=== PATIENT | male | born 1990 | race Caucasian/White ===

== ENCOUNTER 2016-11-28 19:56 | Emergency (ER) | payer SELFPAY ==
[~2016-11-28] VITALS: Ht 188 cm; Wt 120.0 kg
[2016-11-28 19:57] VITALS: BP 179/104; PULSE 67; RESP 16; TEMP 98.4; O2SAT 98
[2016-11-28 20:32] VITALS: PULSE 55; RESP 18; TEMP 98.1; O2SAT 99
[2016-11-28 20:35] VITALS: BP 174/94; PULSE 55; RESP 18; O2SAT 98
--- NOTE | 2016-11-28 20:58 | PD ---
HPI Chief Complaint: Chest Pain Time Seen by Provider: 20:58 Travel History International Travel<30 days: No Contact w/Intl Traveler<30days: No Traveled to known affect area: No History of Present Illness HPI 26-year-old male presents to the ED for evaluation of sudden onset of dizziness , tunnel vision, posterior headache, heaviness in the chest, palpitations, shortness of breath and diaphoresis at 6 PM. 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 Patient states before today he was feeling well. He does complain of some chronic pain in the legs and changes in the skin in the feet and legs. 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 He smokes a pack a day since age 14. He endorses cardiac history in his grandfather. Takes no daily medications, allergic to codeine. PFSH Past Medical History Diminished Hearing: No Past Surgical History Other Surgery: Yes (HERNIA REPAIR) Social History Alcohol Use: Yes Tobacco Use: Yes (1 PPD since age 13) Substance Use: No Allergies-Medications (Allergen,Severity, Reaction): Coded Allergies: Codeine (Verified Allergy, Mild, UNKNOWN , 08/25/14) Reported Meds & Prescriptions Reported Meds & Active Scripts Active No Active Prescriptions or Reported Medications Review of Systems Except as stated in HPI: all other systems reviewed are Neg Physical Exam Narrative GENERAL: Well-nourished, well-developed obese white male in no acute distress. SKIN: Focused skin assessment warm/dry. Chronic venous stasis changes in the bilateral lower extremities. HEAD: Normocephalic. EYES: No scleral icterus. No injection or drainage. NECK: Supple, trachea midline. No JVD or lymphadenopathy. CARDIOVASCULAR: Regular rate and rhythm without murmurs, gallops, or rubs. RESPIRATORY: Breath sounds equal bilaterally. Very mild end expiratory wheezing. No accessory muscle use. GASTROINTESTINAL: Abdomen protuberant, soft, non-tender, nondistended. Active bowel sounds. MUSCULOSKELETAL: No cyanosis, or edema. Homans sign negative bilaterally. NEUROLOGICAL: Awake and alert. Cranial nerves II through XII intact. Motor and sensory grossly within normal limits. Five out of 5 muscle strength in all muscle groups. Normal speech. BACK: Nontender without obvious deformity. No CVA tenderness. Data Data Last Documented VS Vital Signs Date Time Temp Pulse Resp B/P Pulse Ox O2 Delivery O2 Flow Rate FiO2 11/28/16 21:41 56 16 151/78 99 Room Air 11/28/16 20:32 98.1 Orders Electrocardiogram (11/28/16 20:17) Complete Blood Count With Diff (11/28/16 20:17) Basic Metabolic Panel (Bmp) (11/28/16 20:17) Ckmb (Isoenzyme) Profile (11/28/16 20:17) Troponin I (11/28/16 20:17) Chest, Single Ap (11/28/16 20:17) Iv Access Insert/Monitor (11/28/16 20:17) Ecg Monitoring (11/28/16 20:17) Oxygen Administration (11/28/16 20:17) Oximetry (11/28/16 20:17) Prothrombin Time / Inr (Pt) (11/28/16 20:55) Act Partial Throm Time (Ptt) (11/28/16 20:55) Bilateral Bp Monitoring (11/28/16 20:55) Ct Brain W/O Iv Contrast(Rout) (11/28/16 ) CKMB (11/28/16 20:15) CKMB% (11/28/16 20:15) Ketorolac Inj (Toradol Inj) (11/28/16 22:00) Prochlorperazine Inj (Compazine Inj) (11/28/16 22:00) Diphenhydramine Inj (Benadryl Inj) (11/28/16 22:00) Electrocardiogram (11/28/16 21:59) Sodium Chlor 0.9% 1000 Ml Inj (Ns 1000 M (11/28/16 22:00) Mandatory Outpatient Referral (11/28/16 22:17) Labs Laboratory Tests Test 11/28/16 11/28/16 20:15 21:40 White Blood Count 9.4 TH/MM3 Red Blood Count 5.28 MIL/MM3 Hemoglobin 15.6 GM/DL Hematocrit 45.7 % Mean Corpuscular Volume 86.6 FL Mean Corpuscular Hemoglobin 29.5 PG Mean Corpuscular Hemoglobin 34.1 % Concent Red Cell Distribution Width 12.9 % Platelet Count 215 TH/MM3 Mean Platelet Volume 9.1 FL Neutrophils (%) (Auto) 43.2 % Lymphocytes (%) (Auto) 46.9 % Monocytes (%) (Auto) 7.6 % Eosinophils (%) (Auto) 1.8 % Basophils (%) (Auto) 0.5 % Neutrophils # (Auto) 4.0 TH/MM3 Lymphocytes # (Auto) 4.4 TH/MM3 Monocytes # (Auto) 0.7 TH/MM3 Eosinophils # (Auto) 0.2 TH/MM3 Basophils # (Auto) 0.0 TH/MM3 CBC Comment DIFF FINAL Differential Comment Sodium Level 141 MEQ/L Potassium Level 4.1 MEQ/L Chloride Level 106 MEQ/L Carbon Dioxide Level 27.8 MEQ/L Anion Gap 7 MEQ/L Blood Urea Nitrogen 14 MG/DL Creatinine 1.06 MG/DL Estimat Glomerular Filtration 83 ML/MIN Rate Random Glucose 96 MG/DL Calcium Level 10.1 MG/DL Total Creatine Kinase 977 U/L Creatine Kinase MB 6.3 NG/ML Creatine Kinase MB % 0.6 % Troponin I LESS THAN 0.02 NG/ML Prothrombin Time 10.0 SEC Prothromb Time International 0.9 RATIO Ratio Activated Partial 25.4 SEC Thromboplast Time MDM Medical Decision Making Medical Screen Exam Complete: Yes Emergency Medical Condition: Yes Differential Diagnosis Chest pain versus cephalgia versus ACS versus ICH versus hypertensive urgency versus other Narrative Course 26-year-old male presents to the ED for evaluation of sudden onset of dizziness , tunnel vision, posterior headache, heaviness in the chest, palpitations, shortness of breath and diaphoresis at 6 PM. Now feels like he will "just fall over" if he tries to stand up. Patient states before today he was feeling well. He smokes a pack a day since age 14. He endorses cardiac history in his grandfather. Vitals reviewed. BP 179/104 on presentation. Improved to 158/78 exam room. Physical exam reveals an obese white male in no acute distress. No focal neuro deficits No appreciable M/R/G, very mild end expiratory wheezes in the bilateral lungs. Chronic venous stasis changes in the bilateral lower extremities. EKG 1: Rate 64, junctional rhythm, OK interval 115, QRS 104, QTC 403. T waves inverted in lead. Reviewed by Dr. Andrews. EKG 2: Rate 56, sinus bradycardia. OK interval 167, QRS 103, QTC 399. Moderate voltage criteria for LVH. Reviewed by Dr. Andrews. CXR: No acute disease per radiology read. Cardiac enzymes: Negative 1 CBC: Unremarkable CMP: Unremarkable CT of the head: Normal for patient of this age per radiology read. After the CT was resulted the patient was administered a liter of normal saline , 25 mg Benadryl, 5 mg Compazine and 30 mg Toradol IV. On recheck he states that he is very anxious about taking medications but endorses some improvement of his headache symptoms. I discussed the patient with Dr. Andrews. After evaluating the EKG is Dr. Andrews recommends follow-up with the lumber buyer. The patient is uninsured and therefore a mandatory patient referral was ordered. I discussed the results for the patient as well as the need to monitor the BP and follow-up with the lumber buyer. The patient and his indicated understanding of the instructions and are agreeable to the care plan. This patient is stable and discharged home. Diagnosis Primary Impression: Near syncope Additional Impressions: Headache Qualified Code: R51 - Nonintractable episodic headache, unspecified headache type Abnormal EKG Referrals: [facility] [employer] Patient Instructions: General Instructions, Near Syncope (ED) Additional Instructions: Rest, hydrate. Return to normal, gentle activity as tolerated. Monitor your blood pressure and record it for reporting to the primary care as discussed. A mandatory outpatient follow-up has been placed on your behalf for follow-up with the lumber buyer. Expect a phone call from the hospital to arrange this visit. Return to the ED for any urgent or emergent medical condition. Scripts No Active Prescriptions or Reported Meds Disposition: 01 DISCHARGE HOME Condition: Stable Joann Bliss Nov 28, 2016 20:58
[2016-11-28 21:00] LABS: BASOPHIL % 0.5 % (0.0-2.0); EOSINOPHIL # 0.2 TH/MM3 (0-0.4); EOSINOPHIL % 1.8 % (0.0-4.0); HEMATOCRIT 45.7 % (39.0-51.0); HEMO FLAGS DIFF FINAL; LYMPH % 46.9 % (9.0-44.0); LYMPHOCYTE # 4.4 TH/MM3 (1.0-4.8); MEAN CELL VOLUME 86.6 FL (80.0-100.0); MEAN CORPUSCULAR HEMOGLOBIN 29.5 PG (27.0-34.0); MEAN CORPUSCULAR HGB CONC 34.1 % (32.0-36.0); MONO % 7.6 % (0.0-8.0); NEUT % 43.2 % (16.0-70.0); PLATELET COUNT 215 TH/MM3 (150-450); RED BLOOD COUNT 5.28 MIL/MM3 (4.50-5.90); RED CELL DISTRIBUTION WIDTH 12.9 % (11.6-17.2); WHITE BLOOD COUNT 9.4 TH/MM3 (4.0-11.0)
--- NOTE | 2016-11-28 21:06 | RADRPT ---
EXAM DATE/TIME: 11/28/2016 20:43 [facility] COMPARISON: CHEST SINGLE AP, March 29, 2016, 20:16. INDICATIONS : Chest pain. MEDICAL HISTORY : None. SURGICAL HISTORY : None. ENCOUNTER: Initial ACUITY: 1 day PAIN SCORE: 6/10 LOCATION: Bilateral chest FINDINGS: A single view of the chest demonstrates the lungs to be symmetrically aerated without evidence of mas s, infiltrate or effusion. The cardiomediastinal contours are unremarkable. Osseous structures are intact. CONCLUSION: No acute disease. No significant change has occurred. Dawit Renteria MD on November 28, 2016 at 21:04 Board Certified Radiologist. This report was verified electronically.
[2016-11-28 21:17] LABS: CREATINE KINASE 977 U/L (39-308)
[2016-11-28 21:26] LABS: BICARBONATE 27.8 MEQ/L (21.0-32.0); BLOOD UREA NITROGEN 14 MG/DL (7-18); CHLORIDE 106 MEQ/L (98-107); GLOMERULAR FILTRATION RATE 83 ML/MIN (>89); POTASSIUM 4.1 MEQ/L (3.5-5.1); SODIUM (NA) 141 MEQ/L (136-145)
[2016-11-28 21:27] LABS: ANION GAP 7 MEQ/L (5-15)
[2016-11-28 21:30] LABS: CKMB 6.3 NG/ML (0.5-3.6)
[2016-11-28 21:41] VITALS: BP 151/78; PULSE 56; RESP 16; O2SAT 99
--- NOTE | 2016-11-28 21:51 | RADRPT ---
EXAM DATE/TIME: 11/28/2016 21:22 [facility] COMPARISON: No previous studies available for comparison. INDICATIONS : Patient complains of dizziness, headache, nausea and left arm numbness. RADIATION DOSE: 56.35 CTDIvol (mGy) MEDICAL HISTORY : None SURGICAL HISTORY : None. ENCOUNTER: Initial ACUITY: 1 day PAIN SCALE: 6/10 LOCATION: cranial TECHNIQUE: Multiple contiguous axial images were obtained of the head. Using automated exposure control and adj ustment of the mA and/or kV according to patient size, radiation dose was kept as low as reasonably a chievable to obtain optimal diagnostic quality images. DICOM format image data is available electro nically for review and comparison. FINDINGS: CEREBRUM: The ventricles are normal for age. No evidence of midline shift, mass lesion, hemorrhage or acute in farction. No extra-axial fluid collections are seen. POSTERIOR FOSSA: The cerebellum and brainstem are intact. The 4th ventricle is midline. The cerebellopontine angle i s unremarkable. EXTRACRANIAL: The visualized portion of the orbits is intact. SKULL: The calvaria is intact. No evidence of skull fracture. CONCLUSION: Normal examination for a patient of this age. No significant change has occurred. Dawit Renteria MD on November 28, 2016 at 21:47 Board Certified Radiologist. This report was verified electronically.
[2016-11-28] MEDS ORDERED: SODIUM CHLOR 0.9% 1000 ML INJ 1,000 ML IV ONE (22:00)
[2016-11-28] MEDS ORDERED: diphenhydrAMINE HCL 50 MG/ML VIAL IVP ONE (22:00)
[2016-11-28] MEDS ORDERED: KETOROLAC TROMETHAMINE 30 MG/ML (IVP) VIAL IVP ONE (22:00)
[2016-11-28] MEDS ORDERED: PROCHLORPERAZINE INJ 10 MG/2 ML VIAL IVP ONE (22:00)
[2016-11-28 22:34] LABS: APTT (PATIENT) 25.4 SEC (24.3-30.1); INTERNATIONAL NORMALIZED RATIO 0.9 RATIO
--- NOTE | 2016-11-29 18:10 | EKG ---
Date Performed: 11/28/2016 Time Performed: 20:21:55 PTAGE: 26 years EKG: ECTOPIC ATRIAL RHYTHM NONSPECIFIC ST & T-WAVE ABNORMALITY Compared to previous tracing, the ectopic atrial rhythm is new. There's been an increase in the anterolateral ST elevation which is in fact new. Clinical correlation is advised ABNORMAL RHYTHM ECG PREVIOUS TRACING : 03/29/2016 20.20 DOCTOR: Ceci Wright Interpretating Date/Time 11/29/2016 18:09:16
--- NOTE | 2016-11-29 18:10 | EKG ---
Date Performed: 11/28/2016 Time Performed: 22:05:11 PTAGE: 26 years EKG: SINUS BRADYCARDIA MODERATE VOLTAGE CRITERIA FOR LVH, CONSIDER NORMAL VARIANT Compared to pr evious tracing, the anterolateral ST elevation is unchanged. BORDERLINE ECG NO PREVIOUS TRACING DOCTOR: Ceci Wright Interpretating Date/Time 11/29/2016 18:09:59
== END 2016-11-28 23:09 | disposition home or self-care (01) ==
LOC: NEPE 19:56
DX: R55 Syncope and collapse (principal); R51 Headache; R94.31 Abnormal electrocardiogram [ECG] [EKG]; H53.8 Other visual disturbances; R00.2 Palpitations; R06.02 Shortness of breath; R06.2 Wheezing; R61 Generalized hyperhidrosis; R20.2 Paresthesia of skin; I87.8 Other specified disorders of veins; E66.9 Obesity, unspecified; F17.200 Nicotine dependence, unspecified, uncomplicated; Z82.49 Family history of ischemic heart disease and other diseases of the circulatory system
CPT/HCPCS: 70450; 71010; 80048; 82550; 82552; 84484; 85025; 85610; 85730; 93005; 96374; 96375; 99285; J0780; J1200; J1885; J7030